=== PATIENT | female | born 1970 | race Caucasian/White ===

== ENCOUNTER → 2017-03-30 | Outpatient (CLI) | payer BC | LOC: BMCIMAGING 14:20 | PROVIDERS: ATTEND Psychiatry & Neurology Neurology | DX: M81.0 Age-related osteoporosis without current pathological fracture (principal) ==

== ENCOUNTER → 2018-08-12 | Outpatient (CLI) | payer BC | LOC: BMCIMAGING 16:02 | PROVIDERS: ATTEND Internal Medicine | DX: S22.41XA Multiple fractures of ribs, right side, initial encounter for closed fracture (principal); Z98.82 Breast implant status ==

== ENCOUNTER 2019-01-22 05:55 | Emergency (ER) | payer BC, OTHER ==
[2019-01-22] MEDS ORDERED: KETOROLAC 15 MG/1 ML SDV IVP ONE (06:33)
[2019-01-22] MEDS ORDERED: HYDROmorphONE/DILAUDID 2 MG/ML INJ IVP ONE (06:33)
[2019-01-22] MEDS ORDERED: DIAZEPAM 10 MG/2 ML SYR IVP ONE (06:33)
--- NOTE | 2019-01-22 06:38 | EDPHY ---
H & P Stated Complaint: r hip pain to knee Source: Patient Exam Limitations: No limitations - Personal History LMP (Females 10-55): Now Current Tetanus/Diphtheria Vaccine: Yes Current Tetanus Diphtheria and Acellular Pertussis (TDAP): Yes - Medical/Surgical History Hx Asthma: No Hx Chronic Respiratory Disease: No Hx Diabetes: No Hx Cardiac Disease: No Hx Renal Disease: No Hx Cirrhosis: No Hx Alcoholism: No Hx HIV/AIDS: No Hx Splenectomy or Spleen Trauma: No - Social History Smoking Status: Never smoked Time Seen by Provider: 01/22/19 06:22 HPI/ROS: HPI The patient presents with right hip pain which became worse last night at about 2:00 a.m.. The patient has had right anterior thigh pain which has been minimal and present over the last few weeks which started slowly and was not associated with any injury. She did not have to take any medication for this but noted that it was worse when she sat down. Last night the pain got a bit worse and so she took several doses of ibuprofen. She began to feel the pain more in her right hip and sciatic region. She is having a hard time getting comfortable and finding a good position. She is most comfortable lying on her opposite side with her hip in flexion. She has no prior history of similar pain. She has no numbness or tingling of her leg. She has no bowel or bladder changes.. REVIEW OF SYSTEMS 10 systems were reviewed and negative with the exception of the elements mentioned in the history of present illness. 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 , works as a teacher PHYSICAL General Appearance: Alert, uncomfortable appearing Eyes: Pupils equal and round no pallor or injection ENT, Mouth: Mucous membranes moist Respiratory: There are no retractions, lungs are clear to auscultation Cardiovascular: Regular rate and rhythm Gastrointestinal: Abdomen is soft and non-tender, no masses, bowel sounds normal Neurological: A&O, 5/5 strength in both of her lower extremities which is symmetric, positive straight leg raise on the right, sensation intact to light touch throughout both of her legs Skin: Warm and dry, no rashes Musculoskeletal: Tenderness over the right sciatic notch and right lateral low back diffusely, limited range of motion of her right hip secondary to pain Extremities: symmetrical, no edema Psychiatric: Patient is oriented X 3, there is no agitation (Riguzzi,Selene) Constitutional: Initial Vital Signs Temperature (C) 36.4 C 01/22/19 06:04 Heart Rate 76 01/22/19 06:04 Respiratory Rate 18 01/22/19 06:04 O2 Sat (%) 98 01/22/19 06:04 O2 Delivery Mode Room Air Allergies/Adverse Reactions: No Known Allergies Allergy (Unverified 01/22/19 06:03) Home Medications: Medication Instructions Recorded LaMICtal 01/22/19 Naproxen 375 mg PO BID #30 tablet 01/22/19 Vitamin D2 01/22/19 methylPREDNISolone [Medrol Dose 4 mg PO DAILY 6 Days ea 01/22/19 Vinnie] Medical Decision Making Differential Diagnosis: This is a 48-year-old healthy active woman who presents with several weeks of anterior thigh pain, now with right-sided hip and low back pain as well which became more spontaneously overnight. Suspect a radiculopathy as the cause of her symptoms which may have led to some muscle spasm last night. She has no prior history of similar. She has no fever, bowel or bladder changes, numbness or weakness. She does have a positive straight leg raise on the right with no other neurologic deficits or abnormalities. Plan for plain films, medication for pain and spasm. (Selene Huang) Other Provider: Asked by the patient's nurse to improve lidocaine patch and oral narcotic; which appears reasonable after reviewing the chart. (Yunior Wesley) - Data Points Medications Given: Discontinued Medications Hydrocodone Bitart/Acetaminophen (Sant[place] 5/325) 1 tab PO EDNOW ONE Stop: 01/22/19 08:12 Last Admin: 01/22/19 08:20 Dose: 1 tab Dexamethasone (Decadron Injection) 10 mg IVP EDNOW ONE Stop: 01/22/19 06:43 Last Admin: 01/22/19 06:56 Dose: 10 mg Diazepam (Valium) 5 mg IVP EDNOW ONE Stop: 01/22/19 06:34 Last Admin: 01/22/19 06:58 Dose: 5 mg Hydromorphone HCl (Dilaudid) 0.5 mg IVP EDNOW ONE Stop: 01/22/19 06:34 Last Admin: 01/22/19 07:00 Dose: 0.5 mg Sodium Chloride (Ns) 1,000 mls @ 0 mls/hr IV EDNOW ONE; Wide Open PRN Reason: Protocol Stop: 01/22/19 07:03 Last Admin: 01/22/19 07:03 Dose: 1,000 mls Ketorolac Tromethamine (Toradol) 15 mg IVP EDNOW ONE Stop: 01/22/19 06:34 Last Admin: 01/22/19 06:54 Dose: 15 mg Miscellaneous Medication (Icy Hot Lidocaine/Menthol 4%/1% Patch) 1 patch TD EDNOW ONE Stop: 01/22/19 08:12 Last Admin: 01/22/19 08:21 Dose: 1 patch Departure - Departure Disposition: Home, Routine, Self-Care Clinical Impression: Right lumbosacral radiculopathy Condition: Good Instructions: Hydrocodone/Acetaminophen (By mouth), Naproxen (By mouth), Methylprednisolone (By mouth), Lidocaine Patch (On the skin), Lumbar Radiculopathy (ED), Hip Pain (ED) Additional Instructions: Please follow-up with your primary care doctor in the next few days. You would likely benefit from physical therapy. Please return to the emergency department if your worse in any way. I recommend that you avoid physical exercise for the next 1 week. Referrals: Tracy Flores MD [Primary Care Provider] - As per Instructions Stand Alone Forms: Work Excuse Prescriptions: methylPREDNISolone [Medrol Dose Vinnie] 4 mg PO DAILY 6 Days ea Naproxen 375 mg PO BID #30 tablet
[2019-01-22] MEDS ORDERED: DEXAMETHASONE 10 MG/ML VIAL IVP ONE (06:42)
[2019-01-22] MEDS ORDERED: HYDROmorphONE/DILAUDID 1 MG/ML INJ ONE (06:47)
[2019-01-22] MEDS ORDERED: NS 1,000 ML IV ONE (07:02)
[2019-01-22] MEDS ORDERED: HYDROCODONE/APAP 5/325 TAB PO ONE (08:11)
[2019-01-22] MEDS ORDERED: LIDOCAINE 4%/MENTHOL 1% PATCH TD ONE (08:11)
[2019-01-22] MEDS ORDERED: HYDROCOD/APAP 5/325 PREPACK#6 BTL TAKEHOME ONE (08:27)
[2019-01-22 09:20] VITALS: BP 110/69
[2019-01-22] MEDS ORDERED: PATCH REMOVAL 1 EA PATCH TD SCH (21:00)
== END 2019-01-22 09:18 | disposition home or self-care (01) ==
DX: M54.17 Radiculopathy, lumbosacral region (principal); E86.9 Volume depletion, unspecified
CPT/HCPCS: 96374; J1100; J1170; J1885; J3360